=== PATIENT | female | born 1960 | race Asian ===

== ENCOUNTER 2019-03-19 09:30 | Outpatient (CLI) | payer OTHER ==
[2019-03-19] MEDS ORDERED: GADOBUTROL 7.5 MMOL/7.5 ML VIAL ONE (10:00)
[2019-03-19] MEDS ORDERED: GADOBUTROL 10 MMOL/10 ML VIAL ONE (10:00)
[2019-03-19] MEDS ORDERED: OMNIPAQUE 350 MG/ML, 100ML BOTTLE ONE (15:20)
== END 2019-03-19 23:59 | disposition home or self-care (01) ==
LOC: CFH 09:30
PROVIDERS: ATTEND Internal Medicine
DX: C79.51 Secondary malignant neoplasm of bone (principal); C79.31 Secondary malignant neoplasm of brain; C34.90 Malignant neoplasm of unspecified part of unspecified bronchus or lung; R91.8 Other nonspecific abnormal finding of lung field; N28.1 Cyst of kidney, acquired; I70.0 Atherosclerosis of aorta; N85.2 Hypertrophy of uterus; M85.88 Other specified disorders of bone density and structure, other site; R16.0 Hepatomegaly, not elsewhere classified
CPT/HCPCS: 70553; 71260; 74177; A9585; Q9967